=== PATIENT | female | born 1955 ===

== ENCOUNTER 2019-01-16 20:49 | Emergency (ER) | payer OTHER | END 2019-01-16 21:55 | disposition home or self-care (01) | LOC: SCSER 20:49 | DX: L02.412 Cutaneous abscess of left axilla (principal); L02.415 Cutaneous abscess of right lower limb; L03.115 Cellulitis of right lower limb; F17.210 Nicotine dependence, cigarettes, uncomplicated | CPT/HCPCS: 99283 ==